=== PATIENT | female | born 1955 | race Caucasian/White ===

== ENCOUNTER 2023-06-08 14:24 | Emergency (ER) | payer MEDICARE, OTHER | END 2023-06-08 15:22 | disposition home or self-care (01) | LOC: VM.ED 14:24 | DX: S63.92XA Sprain of unspecified part of left wrist and hand, initial encounter (principal); I10 Essential (primary) hypertension; Z88.1 Allergy status to other antibiotic agents; W18.30XA Fall on same level, unspecified, initial encounter; Y93.89 Activity, other specified | CPT/HCPCS: 73130-LT; 99283 ==